=== PATIENT | male | born 1970 | race Caucasian/White ===

== ENCOUNTER 2016-10-13 14:00 | Emergency (ER) | payer BC ==
[2016-10-13 15:24] LABS: CHLORIDE,CL 103 mmol/L (98-110); SODIUM,NA 140 mmol/L (136-146)
[2016-10-13] MEDS ORDERED: MVI, Adult with Vitamin K 10 ML, Thiamine 100 MG, Folic Acid 1 MG in Sodium Chloride 0.... IV ONE ×4 (15:40)
[2016-10-13] MEDS ORDERED: LORazepam 2 MG/ML MDV IVPUSH ONE (15:41)
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
[2016-10-13 15:59] LABS: ACETAMINOPHEN < 3.0 ug/mL
[2016-10-13] MEDS ORDERED: Sodium Chloride 0.9% 1,000 ML IV SCH (16:00)
[2016-10-13] MEDS ORDERED: Ondansetron 4 MG/2 ML SDV IVPUSH ONE (16:12)
[2016-10-13 16:55] VITALS: BP 136/82
== END 2016-10-13 16:45 ==
LOC: MW.ED 14:00
DX: R45.851 Suicidal ideations (principal); F10.920 Alcohol use, unspecified with intoxication, uncomplicated; I10 Essential (primary) hypertension; K21.9 Gastro-esophageal reflux disease without esophagitis; F41.9 Anxiety disorder, unspecified; F31.9 Bipolar disorder, unspecified; E66.9 Obesity, unspecified; Z98.890 Other specified postprocedural states; Z79.899 Other long term (current) drug therapy; Y90.8 Blood alcohol level of 240 mg/100 ml or more
CPT/HCPCS: 36415; 80053; 80305; 81001; 83735; 84436; 84481; 85025; 93005; 96365; 96375; 99285; G0480; J2060; J2405; J3411; J7040